=== PATIENT | male | born 1950 | race Caucasian/White ===

== ENCOUNTER 2018-04-07 06:30 | Observation (INO) | payer OTHER, BC ==
[2018-04-07] MEDS: ASPIRIN 81 MG TAB PO (07:05)
[2018-04-07] MEDS: NITROGLYCERIN 2% 1 GM OINT PKT TD (07:07)
[2018-04-07 07:16] LABS: ADD MAN DIFF? NO
[2018-04-07 07:28] LABS: BASOPHILS % 0.5 % (0.0-2.0); EOSINOPHILS # 0.2 10^3/ul (0.0-0.5); EOSINOPHILS % 2.5 % (0.0-7.0); HEMATOCRIT 36.5 % (42.0-52.0); HEMOGLOBIN 12.5 g/dl (14.0-18.0); LYMPHOCYTES # 2.2 10^3/ul (0.8-2.9); LYMPHOCYTES % 35.8 % (15.0-51.0); MEAN CORPUSCULAR HEMOGLOBIN 30.6 pg (29.0-33.0); MEAN CORPUSCULAR HGB CONC 34.2 g/dl (32.0-37.0); MEAN CORPUSCULAR VOLUME 89.2 fl (82.0-101.0); MEAN PLATELET VOLUME 10.2 fl (7.4-10.4); MONOCYTE # 0.3 10^3/ul (0.3-0.9); NEUTROPHIL # 3.4 10^3/ul (1.6-7.5); NEUTROPHILS % 55.9 % (39.0-77.0); PLATELET COUNT 185 10^3/UL (140-415); RED BLOOD COUNT 4.09 10^6/ul (4.70-6.10); RED CELL DISTRIBUTION WIDTH 13.2 % (11.5-14.5)
[2018-04-07 07:50] LABS: ANION GAP 6 (5-13); BLOOD UREA NITROGEN 18 mg/dl (7-20); CARBON DIOXIDE 24 mmol/L (21-31); CHLORIDE 110 mmol/L (97-110); CREATININE 1.15 mg/dl (0.61-1.24); Estimated GFR > 60 mL/min (>60); GLUCOSE 161 mg/dl (70-220); POTASSIUM 4.6 mmol/L (3.5-5.1); SODIUM 140 mmol/L (135-144)
[2018-04-07 08:01] LABS: TROPONIN-I < 0.012 ng/ml (0.000-0.120)
[2018-04-07] MEDS ORDERED: ACETAMINOPHEN 325 MG TAB PO (09:30)
[2018-04-07] MEDS ORDERED: ONDANSETRON 4 MG INJ IV (09:30)
[2018-04-07] MEDS ORDERED: NACL 0.9% 3 ML SYG IV (10:30)
[2018-04-07] MEDS ORDERED: ZOLPIDEM 5 MG TAB PO (10:30)
[2018-04-07 11:30] LABS: CREATINE KINASE 45 IU/L (23-200)
[2018-04-07 11:43] LABS: CK INDEX 1.7; CK-MB 0.77 ng/ml (0.0-2.4); TROPONIN-I < 0.012 ng/ml (0.000-0.120)
[2018-04-07 12:10] LABS: MAGNESIUM 1.9 mg/dl (1.7-2.5)
[2018-04-07] MEDS: REGADENOSON 0.4 MG/5 ML SYG (13:50)
[2018-04-07] MEDS: ACETAMINOPHEN 325 MG TAB PO (15:57)
[2018-04-07 17:24] LABS: CREATINE KINASE 40 IU/L (23-200)
[2018-04-07] MEDS: metFORMIN 500 MG TAB PO (17:32)
[2018-04-07 17:36] LABS: CK INDEX 1.7; CK-MB 0.69 ng/ml (0.0-2.4); TROPONIN-I < 0.012 ng/ml (0.000-0.120)
[2018-04-07] MEDS ORDERED: ATORVASTATIN 40 MG TAB PO (21:00)
[2018-04-07] MEDS ORDERED: METOPROLOL 50 MG TAB PO (21:00)
[2018-04-08] MEDS ORDERED: CLOPIDOGREL 75 MG TAB PO (09:00)
[2018-04-08] MEDS ORDERED: ASPIRIN (EC) 81 MG TAB PO (09:00)
== END 2018-04-07 18:54 | disposition home or self-care (01) ==
LOC: E/R 06:30 → 6WM 09:07
DX: R07.9 Chest pain, unspecified (principal); E11.9 Type 2 diabetes mellitus without complications; I10 Essential (primary) hypertension; I25.10 Atherosclerotic heart disease of native coronary artery without angina pectoris; Z79.84 Long term (current) use of oral hypoglycemic drugs; Z79.02 Long term (current) use of antithrombotics/antiplatelets; Z79.82 Long term (current) use of aspirin; E78.5 Hyperlipidemia, unspecified
CPT/HCPCS: 36415; 71045; 78452; 80048; 82550; 82553; 82962; 83735; 84484; 85025; 93005; 93017; 93306; 99285-25; G0378